=== PATIENT | male | born 1940 | race Caucasian/White ===

== ENCOUNTER 2016-09-09 05:57 | Day surgery (SDC) | payer MEDICARE, OTHER ==
[~2016-09-09 05:57] MED LIST: Dextrose 5%-0.45% NaCl 1,000 ML IV SCH; Sodium Chloride 0.9% 10 ML Syringe FLUSH PRN
[2016-09-09] MEDS ORDERED: fentaNYL 100 MCG/2 ML SDV ONE (06:15)
[2016-09-09] MEDS ORDERED: Midazolam 1 MG/ML 2 ML SDV ONE (06:15)
[2016-09-09] MEDS ORDERED: fentaNYL 100 MCG/2 ML SDV IV ONE ×5 (06:59→11:11)
[2016-09-09] MEDS ORDERED: Midazolam 1 MG/ML 2 ML SDV IV ONE ×10 (07:01→11:11)
--- NOTE | 2016-09-09 08:57 | OR ---
DATE: 09/09/2016 PROCEDURE: Total colonoscopy and multiple cold snare polypectomies. INSTRUMENT USED: CF-H180AL Olympus video colonoscope. PREMEDICATIONS: Fentanyl 150 mcg intravenous, Versed 5 mg intravenous. 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 INDICATION: The patient with previous sessile colonic polyp removal. Followup colonoscopy examination is done for detection of any polypoid lesions and removal, endoscopic hemostasis therapy if needed. DESCRIPTION OF PROCEDURE: Initial rectal exam was unremarkable. Rigid anoscopy was normal. The colonoscope was passed with ease. There was some amount of fecal material noted in the colon that required aspiration. The colon was found to be redundant and tortuous, technically a difficult exam and prolonged. The scope was passed up to the area of cecum visualized from distance, photographs were taken. No bleeding was noted from any of the visualized areas at the commencement of the examination. No stricture. No vascular ectasia. No large isolated ulcerations seen. No evidence of diffuse inflammatory bowel disease in the form of friability, contact bleeding, or ulcerations. In the proximal transverse colon, a 5 mm sized benign-appearing polyp stool in number were noted, cold snare polypectomies were done, the tissues were retrieved and sent for histopathology. Probing the proximal sides of folds and flexures, using adequate distention and clearing up the stool material, withdrawal of the scope was made. No bleeding was noted from any of the visualized areas at the completion of examination. IMPRESSION: Multiple colonic polyps. The patient tolerated the procedure well. [facility] /[id number]
[2016-09-09 10:00] VITALS: BP 169/68
== END 2016-09-09 10:05 | disposition home or self-care (01) ==
LOC: DL.ENDO 05:57
PROVIDERS: ATTEND Internal Medicine Gastroenterology
DX: Z12.11 Encounter for screening for malignant neoplasm of colon (principal); E11.9 Type 2 diabetes mellitus without complications; I25.10 Atherosclerotic heart disease of native coronary artery without angina pectoris; N40.0 Benign prostatic hyperplasia without lower urinary tract symptoms; E78.00 Pure hypercholesterolemia, unspecified; E03.9 Hypothyroidism, unspecified; Z88.8 Allergy status to other drugs, medicaments and biological substances
CPT/HCPCS: 45385; J2250; J3010; J7042; 88305

== ENCOUNTER 2019-02-25 11:20 | Emergency (ER) | payer MEDICARE, OTHER ==
--- NOTE | 2019-02-25 12:04 | EDM.PDOC ---
ED HPI GENERAL MEDICAL PROBLEM - General Chief Complaint: Diabetic Complaint Stated Complaint: AMBULANCE Time Seen by Provider: 02/25/19 12:03 Source of Information: Reports: Patient, RN, RN Notes Reviewed History Limitations: Reports: No Limitations - History of Present Illness INITIAL COMMENTS - FREE TEXT/NARRATIVE: Pt to ER per [facility] with c/o low blood sugar. Patient states he checked his blood sugar this morning, took 3 units of insulin and ate breakfast. States he checked the blood sugar prior to going to a and it was over 200, so he theresa up 4 units of insulin to take to the with him to take just before eating after the . Patient states he is not sure if it was habit, but he injected the insulin by accident. Went to the , stood up and sat down several times, became dizzy and passed out. Denies any chest pain or SOB, recent illness, recent injury. Upon arrival to the ER BS 59. Given crackers, peanut butter, and juice. Patient states he is feeling better. Onset: Today, Sudden Left Lower Leg Pain Score (Numeric/FACES): 8 - Related Data Allergies Allergy/AdvReac Type Severity Reaction Status Date / Time brimonidine tartrate Allergy Cannot Verified 04/06/18 13:08 [From Alphagan P] Remember Home Meds: Home Meds Aspirin [Anisha Chewable Aspirin] 162 mg PO BEDTIME 08/08/14 [History] Dorzolamide/Timolol [Cosopt 2%-0.5% Ophth Soln] 1 drop EYEBOTH BID 08/08/14 [ History] Isosorbide Mononitrate [Imdur] 30 mg PO DAILY 08/08/14 [History] Levothyroxine [Synthroid] 100 mcg PO ASDIRECTED 08/08/14 [History] Prazosin [Minpress] 2 mg PO BID 08/08/14 [History] Simvastatin [Zocor] 20 mg PO BEDTIME 08/08/14 [History] Levothyroxine [Synthroid] 200 mcg PO .Thursday08/09/14 [History] Folic Acid 800 mcg PO DAILY 09/15/14 [History] Nitroglycerin [Nitrostat] 1 tab SL ASDIRECTED 09/15/14 [History] Bisacodyl [Laxative] 5 mg PO DAILY 09/08/16 [History] Tamsulosin [Flomax] 0.4 mg PO DAILY 09/08/16 [History] Lisinopril 40 mg PO DAILY 01/13/17 [History] Acetaminophen/oxyCODONE [Percocet 325-5 MG] 1 tab PO Q4HR 04/06/18 [History] Acetaminophen/oxyCODONE [Percocet 325-5 MG] 2 tab PO Q4HR 04/06/18 [History] Diazepam [Valium] 5 mg PO Q6HR PRN 04/06/18 [History] Finasteride 5 mg PO DAILY 04/06/18 [History] Nortriptyline 10 mg PO BEDTIME 04/06/18 [History] amLODIPine [Norvasc] 5 mg PO DAILY 04/06/18 [History] Insulin Aspart [NovoLOG] 0 unit SUBCUT ACBED pen 04/15/18 [Rx] Insulin Aspart [NovoLOG] 5 unit SUBCUT TIDM pen 04/15/18 [Rx] Past Medical History HEENT History: Reports: Cataract, Glaucoma, Impaired Vision, Macular Degeneration Cardiovascular History: Reports: CAD, High Cholesterol, Hypertension, Syncope, Other (See Below) Other Cardiovascular History: PERIPHERAL EDEMA Respiratory History: Reports: SOB Gastrointestinal History: Reports: Chronic Constipation, Colon Polyp, Other ( See Below) Other Gastrointestinal History: S/P SESSILE CECAL POLYP REMOVAL, TUBULAR ADENOMA OF COLON. HX OF BILAT INGUINAL HERNIA Genitourinary History: Reports: BPH Musculoskeletal History: Reports: Arthritis Neurological History: Reports: Neuropathy, Diabetic, Neuropathy, Peripheral Psychiatric History: Reports: Depression Endocrine/Metabolic History: Reports: Diabetes, Type I, Hypothyroidism Hematologic History: Reports: None Immunologic History: Reports: None Oncologic (Cancer) History: Reports: None Dermatologic History: Reports: None Other Dermatologic History: EXTREMELY DRY SKIN - Infectious Disease History Infectious Disease History: Reports: Chicken Pox, Measles - Past Surgical History Head Surgeries/Procedures: Reports: None Cardiovascular Surgical History: Reports: Other (See Below) Respiratory Surgical History: Reports: None GI Surgical History: Reports: Colonoscopy, Hernia, Inguinal, Hernia Repair/Other , Polypectomy, Other (See Below) Male Surgical History: Reports: Vasectomy Musculoskeletal Surgical History: Reports: None Oncologic Surgical History: Reports: None Social & Family History - Family History HEENT: Reports: Glaucoma, Macular Degeneration Cardiac: Reports: None Respiratory: Reports: None GI: Reports: None : Reports: None OBGYN: Reports: None, Musculoskeletal: Reports: None Neurological: Reports: None, Dementia Psychiatric: Reports: None Endocrine/Metabolic: Reports: Diabetes, Type I Hematologic: Reports: None Immunologic: Reports: None Dermatologic: Reports: None Oncologic: Reports: Hodgkin's Lymphoma, Liver, Skin - Tobacco Use Smoking Status *Q: Never Smoker Second Hand Smoke Exposure: No - Caffeine Use Caffeine Use: Reports: Coffee - Recreational Drug Use Recreational Drug Use: No - Living Situation & Occupation Living situation: Reports: Occupation: Retired ED ROS GENERAL - Review of Systems Review Of Systems: ROS reveals no pertinent complaints other than HPI. ED EXAM GENERAL NO PERIP PULSE - Physical Exam Exam: See Below Exam Limited By: No Limitations General Appearance: Alert, WD/WN, No Apparent Distress Eye Exam: Bilateral Eye: EOMI, Normal Inspection, PERRL (3 brisk) Ears: Normal External Exam, Hearing Grossly Normal Nose: Normal Inspection Throat/Mouth: Normal Inspection, Normal Voice, No Airway Compromise Head: Atraumatic, Normocephalic Neck: Normal Inspection, Supple, Non-Tender, Full Range of Motion Respiratory/Chest: No Respiratory Distress, Lungs Clear, Normal Breath Sounds, No Accessory Muscle Use, Chest Non-Tender Cardiovascular: Normal Peripheral Pulses, Regular Rate, Rhythm, No Edema, No Gallop, No JVD, No Murmur, No Rub GI/Abdominal: Normal Bowel Sounds, Soft, Non-Tender, No Organomegaly, No Distention, No Abnormal Bruit, No Mass (Male) Exam: Deferred Rectal (Males) Exam: Deferred Back Exam: Normal Inspection, Full Range of Motion, NT Extremities: Normal Inspection, Normal Range of Motion, Non-Tender, No Pedal Edema, Normal Capillary Refill, Leg Pain (left leg pain. Pt states he sprained ankle a few months ago and has been favoring the ankle, making the left knee and hip hurt.) Neurological: Alert, Oriented, CN II-XII Intact, Normal Cognition, Normal Gait, Normal Reflexes, No Motor/Sensory Deficits Psychiatric: Normal Affect, Normal Mood Skin Exam: Warm, Dry, Intact, Normal Color, No Rash Lymphatic: No Adenopathy Course - Vital Signs Last Recorded V/S: Last Vital Signs Temp 96.7 F 02/25/19 11:22 Pulse 58 L 02/25/19 11:22 Resp 18 02/25/19 11:22 BP 100/60 02/25/19 11:22 Pulse Ox 98 02/25/19 11:22 - Orders/Labs/Meds Orders: Active Orders 24 hr Category Date Time Status Blood Glucose Check, Bedside [RC] ONETIME Care 02/25/19 11:38 Active Blood Glucose Check, Bedside [RC] ONETIME Care 02/25/19 13:17 Inactive EKG Documentation Completion [RC] STAT Care 02/25/19 12:14 Active Peripheral IV Care [RC] . DIRECTED Care 02/25/19 12:16 Active UA RFX BRETT AND CULT IF INDIC [URIN] Stat Lab 02/25/19 12:14 Ordered Sodium Chloride 0.9% [Saline Flush] Med 02/25/19 12:13 Active 10 ml FLUSH ASDIRECTED PRN Peripheral IV Insertion Adult [OM.PC] Stat Oth 02/25/19 12:13 Ordered Medication Orders Sodium Chloride (Saline Flush) 10 ml FLUSH ASDIRECTED PRN PRN Reason: Keep Vein Open Last Admin: 02/25/19 12:27 Dose: 10 ml Labs: Laboratory Tests 02/25/19 02/25/19 02/25/19 Range/Units 11:41 12:22 12:22 WBC 6.5 (5.0-10.0) 10^3/uL RBC 3.99 L (4.6-6.2) 10^6/uL Hgb 12.5 L D (14.0-18.0) g/dL Hct 37.6 L (40.0-54.0) % MCV 94.2 (80-100) fL MCH 31.3 (27.0-34.0) pg MCHC 33.2 (33.0-35.0) g/dL Plt Count 114 L D (150-450) 10^3/uL Neut % (Auto) 57.3 (42.2-75.2) % Lymph % (Auto) 29.9 (20.5-50.1) % [place]oul[place] % (Auto) 9.7 H (2-8) % Eos % (Auto) 2.8 (1.0-3.0) % Baso % (Auto) 0.3 (0.0-1.0) % PT (9.0-12.0) SEC INR (0.9-1.2) Sodium 135 (135-145) mmol/L Potassium 4.1 (3.6-5.0) mmol/L Chloride 100 L (101-111) mmol/L Carbon Dioxide 27.0 (21.0-31.0) mmol/L Anion Gap 12.1 BUN 19 H (7-18) mg/dL Creatinine 0.9 (0.6-1.3) mg/dL Est Cr Clr Drug Dosing TNP Estimated GFR (MDRD) > 60 BUN/Creatinine Ratio 21.11 Glucose 97 (74-105) mg/dL POC Glucose 59 L (83-110) mg/dl Calcium 8.8 (8.4-10.2) mg/dl Total Bilirubin 0.6 (0.2-1.0) mg/dL AST 27 (10-42) IU/L ALT 17 (10-60) IU/L Alkaline Phosphatase 45 (42-121) IU/L Troponin I < 0.02 (0.00-0.02) ng/ml Total Protein 6.9 (6.7-8.2) g/dl Albumin 3.7 (3.2-5.5) g/dl Globulin 3.2 Albumin/Globulin Ratio 1.16 // Range/Units 12:22 WBC (5.0-10.0) 10^3/uL RBC (4.6-6.2) 10^6/uL Hgb (14.0-18.0) g/dL Hct (40.0-54.0) % MCV (80-100) fL MCH (27.0-34.0) pg MCHC (33.0-35.0) g/dL Plt Count (150-450) 10^3/uL Neut % (Auto) (42.2-75.2) % Lymph % (Auto) (20.5-50.1) % [place]oul[place] % (Auto) (2-8) % Eos % (Auto) (1.0-3.0) % Baso % (Auto) (0.0-1.0) % PT 10.4 (9.0-12.0) SEC INR 1.0 (0.9-1.2) Sodium (135-145) mmol/L Potassium (3.6-5.0) mmol/L Chloride (101-111) mmol/L Carbon Dioxide (21.0-31.0) mmol/L Anion Gap BUN (7-18) mg/dL Creatinine (0.6-1.3) mg/dL Est Cr Clr Drug Dosing Estimated GFR (MDRD) BUN/Creatinine Ratio Glucose (74-105) mg/dL POC Glucose (83-110) mg/dl Calcium (8.4-10.2) mg/dl Total Bilirubin (0.2-1.0) mg/dL AST (10-42) IU/L ALT (10-60) IU/L Alkaline Phosphatase (42-121) IU/L Troponin I (0.00-0.02) ng/ml Total Protein (6.7-8.2) g/dl Albumin (3.2-5.5) g/dl Globulin Albumin/Globulin Ratio Meds: Medications Generic Name Dose Route Start Last Admin Trade Name Freq PRN Reason Stop Dose Admin Sodium Chloride 10 ml 02/25/19 12:13 02/25/19 12:27 Saline Flush FLUSH 10 ml ASDIRECTED PRN Administration Keep Vein Open Departure - Departure Time of Disposition: 13:23 Disposition: Home, Self-Care 01 Condition: Fair Clinical Impression: Hypoglycemia, Syncope - Discharge Information *PRESCRIPTION DRUG MONITORING PROGRAM REVIEWED*: No *COPY OF PRESCRIPTION DRUG MONITORING REPORT IN PATIENT JARAD: No Instructions: Syncope, [id number], Hypoglycemia, [id number] Forms: ED Department Discharge Additional Instructions: Monitor blood sugars and treat accordingly as directed Drink plenty of water Follow up with your primary care facility - My Orders Last 24 Hours: My Active Orders 02/25/19 11:38 Blood Glucose Check, Bedside [RC] ONETIME 02/25/19 12:13 Sodium Chloride 0.9% [Saline Flush] 10 ml FLUSH ASDIRECTED PRN Peripheral IV Insertion Adult [OM.PC] Stat 02/25/19 12:14 EKG Documentation Completion [RC] STAT UA RFX BRETT AND CULT IF INDIC [URIN] Stat 02/25/19 12:16 Peripheral IV Care [RC] . DIRECTED 02/25/19 13:17 Blood Glucose Check, Bedside [RC] ONETIME - Assessment/Plan Last 24 Hours: My Active Orders 02/25/19 11:38 Blood Glucose Check, Bedside [RC] ONETIME 02/25/19 12:13 Sodium Chloride 0.9% [Saline Flush] 10 ml FLUSH ASDIRECTED PRN Peripheral IV Insertion Adult [OM.PC] Stat 02/25/19 12:14 EKG Documentation Completion [RC] STAT UA RFX BRETT AND CULT IF INDIC [URIN] Stat 02/25/19 12:16 Peripheral IV Care [RC] . DIRECTED 02/25/19 13:17 Blood Glucose Check, Bedside [RC] ONETIME
[2019-02-25] MEDS: Sodium Chloride 0.9% 10 ML Syringe FLUSH PRN (12:27)
[2019-02-25 12:52] LABS: ANION GAP 12.1; CHLORIDE,CL 100 mmol/L (101-111); SODIUM,NA 135 mmol/L (135-145)
[2019-02-25 13:40] VITALS: BP 125/66; PULSE 63
== END 2019-02-25 13:33 | disposition home or self-care (01) ==
LOC: DL.ED 11:20
DX: E10.649 Type 1 diabetes mellitus with hypoglycemia without coma (principal); E10.42 Type 1 diabetes mellitus with diabetic polyneuropathy; E78.00 Pure hypercholesterolemia, unspecified; I10 Essential (primary) hypertension; E03.9 Hypothyroidism, unspecified; F32.9 Major depressive disorder, single episode, unspecified; Z88.8 Allergy status to other drugs, medicaments and biological substances; Z79.82 Long term (current) use of aspirin; Z79.899 Other long term (current) drug therapy
CPT/HCPCS: 36415; 80053; 82962; 84484; 85025; 85610; 93005; 99285-25

== ENCOUNTER 2021-07-07 11:19 | Observation (INO) | payer MEDICARE ==
[2021-07-07 12:24] LABS: ANION GAP 10.3 mEq/L (7-13); CHLORIDE,CL 103 mmol/L (98-107); SODIUM,NA 135 mmol/L (136-145)
[2021-07-07 12:33] LABS: CORONAVIRUS COVID-19 NAA NEGATIVE (NEGATIVE)
[2021-07-07] MEDS ORDERED: Iopamidol 755 Mg/ML 100 ML Bottle IVPUSH ONE (12:43)
[2021-07-07] MEDS ORDERED: Acetaminophen 325 MG Tab PO ONE (13:23)
[2021-07-07] MEDS ORDERED: fentaNYL 100 MCG/2 ML SDV IVPUSH ONE (14:31)
[2021-07-07] MEDS ORDERED: Acetaminophen 325 MG Tab PO PRN (16:19)
[2021-07-07] MEDS ORDERED: Morphine 2 MG/ML SYRINGE IVPUSH PRN (16:20)
[2021-07-07] MEDS ORDERED: oxyCODONE 5 MG Tab PO PRN (16:20)
[2021-07-07] MEDS ORDERED: 50% Dextrose in Water 50 ML Syringe IVPUSH PRN (16:38)
[2021-07-07] MEDS ORDERED: Temazepam 15 MG Cap PO PRN (16:46)
[2021-07-07] MEDS ORDERED: Ondansetron 4 MG/2 ML SDV IVPUSH PRN (16:46)
[2021-07-07] MEDS ORDERED: Docusate Sodium 100 MG Cap PO PRN (16:46)
[2021-07-07] MEDS ORDERED: Sodium Chloride 0.9% 10 ML Syringe FLUSH PRN (16:46)
[2021-07-07] MEDS: Lidocaine 5% 700 MG Patch TOP SCH ×2 (16:50)
[2021-07-07] MEDS: Insulin Lispro 100 Units/ML 3 ML Vial SUBCUT SCH ×2 (17:42→21:06)
[2021-07-07] MEDS: Sodium Chloride 0.9% 10 ML Syringe FLUSH SCH (21:00)
[2021-07-07] MEDS ORDERED: Tamsulosin 0.4 MG Cap.ER PO SCH ×2 (21:00)
[2021-07-07] MEDS ORDERED: Non-Formulary Medication 1 Each (Prazosin [Minpress] 1 MG Cap) PO SCH (21:00)
[2021-07-07] MEDS ORDERED: Simvastatin 10 MG Tab PO SCH (21:00)
[2021-07-07] MEDS ORDERED: Dorzolamide/Timolol 2%-0.5% Ophth Soln 10 ML Bottle EYEBOTH SCH (21:00)
[2021-07-07] MEDS ORDERED: Non-Formulary Medication 1 Each (Simvastatin [Zocor] 20 MG Tablet) PO SCH (21:00)
[2021-07-07] MEDS ORDERED: Aspirin 81 MG Tab.Chew PO SCH ×2 (21:00)
[2021-07-07] MEDS: Heparin Sodium 5,000 Units/ML Vial SUBCUT SCH (21:15)
[2021-07-07] MEDS ORDERED: amLODIPine 5 MG Tab PO ONE (22:20)
[2021-07-07] MEDS ORDERED: diphenhydrAMINE 25 MG Tab PO PRN (22:21)
[2021-07-08 07:11] LABS: ANION GAP 10.4 mEq/L (7-13); CHLORIDE,CL 102 mmol/L (98-107); SODIUM,NA 134 mmol/L (136-145)
[2021-07-08 07:53] VITALS: BP 163/67; PULSE 68
[2021-07-08] MEDS: Heparin Sodium 5,000 Units/ML Vial SUBCUT SCH (08:04)
[2021-07-08] MEDS: Insulin Lispro 100 Units/ML 3 ML Vial SUBCUT SCH (08:05)
[2021-07-08] MEDS: Lidocaine 5% 700 MG Patch TOP SCH ×2 (08:07)
[2021-07-08] MEDS: Sodium Chloride 0.9% 10 ML Syringe FLUSH SCH (08:08)
[2021-07-08] MEDS ORDERED: Non-Formulary Medication 1 Each (Insulin Glargine,Hum.Rec.Anlog 100 UNIT/ML Insuln.Pen) INJECT SCH (09:00)
[2021-07-08] MEDS ORDERED: Furosemide 20 MG Tab PO SCH (09:00)
[2021-07-08] MEDS ORDERED: Levothyroxine 125 MCG Tab PO SCH (09:00)
[2021-07-08] MEDS ORDERED: Non-Formulary Medication 1 Each (Amlodipine [Norvasc] 2.5 MG Tablet) PO SCH (09:00)
[2021-07-08] MEDS ORDERED: Finasteride 5 MG Tab PO SCH (09:00)
[2021-07-08] MEDS ORDERED: Non-Formulary Medication 1 Each (Lisinopril [Lisinopril] 40 MG Tablet) PO SCH (09:00)
[2021-07-08] MEDS ORDERED: Isosorbide Mononitrate 30 MG Tab.ER PO SCH (09:00)
== END 2021-07-08 11:05 | disposition home or self-care (01) ==
LOC: DL.ED 11:19 → DL.MS 14:28
PROVIDERS: ADMIT Internal Medicine; ATTEND Internal Medicine
DX: R55 Syncope and collapse (principal); I25.10 Atherosclerotic heart disease of native coronary artery without angina pectoris; E78.00 Pure hypercholesterolemia, unspecified; I10 Essential (primary) hypertension; E03.9 Hypothyroidism, unspecified; F41.9 Anxiety disorder, unspecified; F32.A Depression, unspecified; E11.40 Type 2 diabetes mellitus with diabetic neuropathy, unspecified; S22.49XA Multiple fractures of ribs, unspecified side, initial encounter for closed fracture; E87.1 Hypo-osmolality and hyponatremia; Z88.8 Allergy status to other drugs, medicaments and biological substances; Z79.899 Other long term (current) drug therapy; Z79.82 Long term (current) use of aspirin; Z98.890 Other specified postprocedural states; Z79.890 Hormone replacement therapy; Z79.4 Long term (current) use of insulin; Z20.822 Contact with and (suspected) exposure to COVID-19
CPT/HCPCS: 0240U; 36415; 70450; 71250; 71260; 72125; 80048; 80053; 81003; 82947; 83735; 83880; 84443; 84484; 85025; 85379; 85610; 93005; 96374; 99285; A9270; G0378; J1644; J1815; J3010; Q9967; 71275